=== PATIENT | female | born 1955 | race Hispanic/Latino ===

== ENCOUNTER 2017-06-06 03:55 | Emergency (ER) | payer MEDICARE ==
[~2017-06-06] VITALS: Ht 160 cm; Wt 83.9 kg
--- OUTSIDE RECORDS SUMMARY | 2017-06-06 03:59 | XMS REPORT | Clinical Summary ---
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 Disp. Refills Start End Date Status Date ofloxacin (FLOXIN) 0.3 % Administer 5 drops into 1.75 mL 0 04/12/19 04/19/19 otic solution the left ear daily for 7 18 18 days. amoxicillin-pot Take 1 tablet by mouth 14 tablet 0 04/12/19 clavulanate (AUGMENTIN) every 12 (twelve) hours 18 18 875-125 mg per tablet for 7 days. acetaminophen-codeine Take 1-2 tablets by mouth 20 tablet 0 05/06/19 05/16/19 (TYLENOL WITH CODEINE #3) every 6 (six) hours as 18 18 300-30 mg per tablet needed for mild pain or moderate pain for up to 10 days. [id number] Administer 3 drops into 1.21 mL 0 05/06/1909/26 (CORTISPORIN) the left ear 4 (four) 18 18 3.5-10,000-1 times a day for 10 days. mg/mL-unit/mL-% otic solution Active Problems Not on file Encounters Date Type Specialty Care Team Description 05/05/2017 Emergency Emergency Medicine Aaron Stokes MD Chronic otitis externa of left ear, unspecified type (Primary Dx) 04/11/2017 Emergency Emergency Medicine Dayron Guan, Acute otitis externa of DO left ear, unspecified type (Primary Dx) after 06/05/2016 Social History Tobacco Use Types Packs/Day Years Used Date Never Smoker Smokeless Tobacco: Never Used Alcohol Use Drinks/Week oz/Week Comments No Sex Assigned at Date Recorded Not on file Last Filed Vital Signs Vital Sign Reading Time Taken Blood Pressure 130/60 05/05/2017 3:05 PM CDT Pulse 58 05/05/2017 3:05 PM CDT Temperature 36.7 C (98 F) 05/05/2017 3:05 PM CDT Respiratory Rate 18 05/05/2017 3:05 PM CDT Oxygen Saturation 100% 05/05/2017 3:05 PM CDT Inhaled Oxygen - - Concentration Weight 83.9 kg (185 lb) 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 Height 160 cm (5' 3") 05/05/2017 10:22 AM CDT Body Mass Index 31.76 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 Up to date CT equipment and radiation dose reduction techniques were utilized. FINDINGS: There is fluid in the left middle ear cleft and mastoid air cells. There is no associated mass in the nasopharynx. There are no erosions to suggest underlying cholesteatoma. There is also mucosal thickening in the left external auditory canal. The adjacent sigmoid sinus is unremarkable. The ossicles demonstrate a normal relationship to each other and the oval windows. The inner ear structures are normal. There is no dehiscence of the superior semicircular canals. IMPRESSION: Nonspecific fluid in the left middle ear cleft and mastoid air cells with associated mucosal thickening in the left external auditory canal. [id number] Procedure Note Interface, Radiology Results Incoming - 05/05/2017 2:04 PM CDT EXAMINATION: CT INTERNAL AUDITORY CANALS POSTERIOR FOSSA WO CONTRAST COMPARISON: None CLINICAL HISTORY: left ear infection r o mastoiditis TECHNIQUE: Coronal, sagittal and oblique reformations were accomplished. Up to date CT equipment and radiation dose reduction techniques were utilized. FINDINGS: There is fluid in the left middle ear cleft and mastoid air cells. There is no associated mass in the nasopharynx. There are no erosions to suggest underlying cholesteatoma. There is also mucosal thickening in the left external auditory canal. The adjacent sigmoid sinus is unremarkable. The ossicles demonstrate a normal relationship to each other and the oval windows. The inner ear structures are normal. There is no dehiscence of the superior semicircular canals. IMPRESSION: Nonspecific fluid in the left middle ear cleft and mastoid air cells with associated mucosal thickening in the left external auditory canal. [id number] after 06/05/2016 Insurance Payer Benefit Subscriber ID Type Phone Address Plan / Group MEDICARE MEDICARE xxxxxxxxxx Medicare [place], [place] PART A AND B [id number] [place] [address]
== END 2017-06-06 04:04 | disposition home or self-care (01) ==
LOC: ER 03:55
DX: H60.502 Unspecified acute noninfective otitis externa, left ear (principal); Z83.3 Family history of diabetes mellitus; Z82.49 Family history of ischemic heart disease and other diseases of the circulatory system
CPT/HCPCS: 99282

== ENCOUNTER 2017-07-06 10:52 | Emergency (ER) | payer MEDICARE ==
[~2017-07-06] VITALS: Ht 160 cm; Wt 80.3 kg
--- OUTSIDE RECORDS SUMMARY | 2017-07-06 10:54 | XMS REPORT | Clinical Summary ---
Author Author [facility] Address Unknown Phone Unavailable Care Team Providers Care Telephone Advice Nurse Name Role Phone Asked, Pcp PCP Unavailable [...] moderate pain for up to 10 days. 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 [id number] Procedure Note Interface, Radiology Results Incoming - [...] thickening in the left external auditory canal. [id number] after 07/05/2016 Insurance Payer Benefit Subscriber ID Type Phone Address Plan / Group MEDICARE MEDICARE xxxxxxxxxx Medicare [place] [address]
--- OUTSIDE RECORDS SUMMARY | 2017-07-06 10:54 | XMS REPORT | Continuity of Care Document ---
Author Author [facility] Organization 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 No 06/06/17 3:54am If yes, is advance directive on file with [facility]? No 06/06/17 3:54am If not on file with [facility] will patient provide a copy? No 06/06/17 3:54am Do you have a Directive to Physician? No 06/06/17 3:54am Do you have a Medical Power of Automatic Operator? No 06/06/17 3:54am Do you have an out of hospital Do Not Resuscitate Order? No 06/06/17 3:54am Do you have any special needs we should be aware of? No 06/06/17 3:54am Do you have a support person here with you today? No 06/06/17 3:54am Did patient receive Notice of Privacy Practices? Yes 06/06/17 3:54am Did patient receive patient rights and responsibilities? Yes 06/06/17 3:54am Problems No problem information available. Medications No medication information available. Social History Smoking Status Start Date Stop Date Never Smoker Hospital Discharge Instructions No hospital discharge instruction information available. Plan of Care Discharge Date 06/06/17 4:04am Disposition HOME, SELF-CARE Condition at Discharge Stable Instructions/Education Provided Otitis Externa - Adult Ear Pain - Adult Forms Provided Work/School Excuse Prescriptions See Medication Section Additional Instructions/Education REST; TAKE MEDICATION PRESCRIBED; FOLLOW UP WITH AN ENT; Functional Status No functional status information available. Allergies, Adverse Reactions, Alerts No allergy information available. Immunizations No immunization information available. Vital Signs Acute Vital Signs Vital Response Date/Time Height 5 ft 3 in 06/06/2017 3:57am Weight 185 lb 06/06/2017 3:57am Body Mass Index 32.8 kg/m^2 06/06/2017 3:57am Results No relevant diagnostic test, laboratory data and/or discharge summary information available. Procedures No procedure information available. Encounters Encounter Location Arrival/Admit Date Discharge/Depart Date Attending Provider Departed Emergency Room [facility] 06/06/17 3:55am 4:04am SHANIKA DE MD
[2017-07-06] MEDS ORDERED: METOCLOPRAMIDE HCL 10 MG/2ML VIAL IV ONE (11:15)
[2017-07-06] MEDS ORDERED: DIPHENHYDRAMINE HCL INJ 50 MG/ML VIAL IV ONE (11:15)
[2017-07-06 11:50] LABS: BILIRUBIN,URINE NEGATIVE (NEGATIVE); CLARITY,URINE CLEAR (CLEAR); COLOR,URINE YELLOW (YELLOW); KETONES,URINE NEGATIVE (NEGATIVE); LEUKOCYTE ESTERASE ,URINE NEGATIVE (NEGATIVE); NITRITE,URINE NEGATIVE (NEGATIVE); PROTEIN,URINE DIPSTICK NEGATIVE (NEGATIVE); URINE UROBILINOGEN 0.2 mg/dL (0.2 - 1)
[2017-07-06 12:00] LABS: BASOPHILS % 0.5 % (0.0-1.0); HEMATOCRIT 37.2 % (34.2-44.1); HEMOGLOBIN 12.1 g/dL (12.0-16.0); LYMPHOCYTES # (AUTO) 1.5 (1.0-3.2); LYMPHOCYTES % 39.4 % (18.0-39.1); MEAN CORPUSCULAR HEMOGLOBIN 28.9 pg (28-32); MEAN CORPUSCULAR HGB CONC 32.5 g/dL (31-35); MONOCYTES # (AUTO) 0.3 (0.2-0.8); MONOCYTES % 8.4 % (4.4-11.3); NEUTROPHILS % 51.2 % (38.7-80.0); PLATELET COUNT 92 x10e3/uL (140-360); RED BLOOD COUNT 4.18 x10e6/uL (3.6-5.1); RED CELL DISTRIBUTION WIDTH 14.3 % (11.7-14.4)
[2017-07-06 12:04] LABS: INR 1.14; PROTHROMBIN TIME 13.7 seconds (11.9-14.5)
[2017-07-06 12:05] LABS: PARTIAL THROMBOPLASTIN TIME 33.3 seconds (23.8-35.5)
[2017-07-06 12:12] LABS: ALANINE AMINOTRANSFERASE 18 IU/L (0-55); ALBUMIN 3.7 g/dL (3.5-5.0); ALBUMIN/GLOBULIN RATIO 1.2 (0.8-2.0); ALKALINE PHOSPHATASE 68 IU/L (40-150); ANION GAP 10.3 mmol/L (8-16); BLOOD UREA NITROGEN 14 mg/dL (7-26); BUN/CREATININE RATIO 18 (6-25); CALCIUM 9.5 mg/dL (8.4-10.2); CARBON DIOXIDE 30 mmol/L (22-29); CHLORIDE 101 mmol/L (98-107); CREATINE KINASE 54 IU/L (29-168); CREATININE, SERUM 0.77 mg/dL (0.57-1.11); EST GLOMERULAR FILTRATION RATE > 60 ML/MIN (60-); GLUCOSE 105 mg/dL (74-118); MAGNESIUM 1.9 MG/DL (1.3-2.1); POTASSIUM 3.3 mmol/L (3.5-5.1); SODIUM 138 mmol/L (136-145)
[2017-07-06] MEDS ORDERED: SODIUM CHLORIDE 0.9% 50ML 50 ML ONE (12:14)
--- NOTE | 2017-07-06 12:15 | Diagnostic Imaging Report ---
PROCEDURE: CHEST SINGLE (PORTABLE) COMPARISON: None. INDICATIONS: HEADACHE FINDINGS: Lungs are well-inflated. No focal consolidation, pleural effusion, or pneumothorax. Cardiomediastinal contour and pulmonary vasculature are within normal limits for portable, AP technique. No overt pulmonary edema. No acute osseous abnormality. CONCLUSION: No acute cardiopulmonary abnormality. Dictated by: Colton Mims M.D. on 07/06/2017 at 12:17 Electronically approved by: Colton Mims M.D. on 07/06/2017 at 12:17
[2017-07-06 12:27] LABS: EPITHELIAL CELLS,URINE FEW /LPF
--- NOTE | 2017-07-06 15:25 | Diagnostic Imaging Report ---
Exam: Head CT without contrast History: Headache Comparison studies: None Technique: Axial images were obtained from the skull base to the vertex. Coronal and sagittal images reconstructed from the axial data. Intravenous contrast: None Findings: Scalp: No abnormalities. Bones: No fractures, blastic or lytic lesions. Brain sulci: Mild prominent. Ventricles: Mild compensatory dilatation along the frontal horns of the lateral ventricles. No hydrocephalus. Extra-axial spaces: No masses, no fluid collection. Parenchyma: No mass, acute hemorrhage or acute cortical vascular insults. There are chronic bilateral striatocapsular lacunar infarcts. Sellar/suprasellar region: No abnormalities. Craniocervical junction: Patent foramen magnum. No Chiari one malformation. Incidental findings: Atherosclerotic calcifications in the carotid siphons. Opacified right anterior ethmoid air cell. IMPRESSION: No acute intracranial abnormalities. Chronic findings: 1. Mild generalized cerebral volume loss. 2. Bilateral striatocapsular lacunar infarcts. Signed by: Dr. Colton Jennings M.D. on 07/06/2017 3:22 PM
[2017-07-06 16:14] VITALS: BP 120/67
== END 2017-07-06 16:05 | disposition home or self-care (01) ==
LOC: ER 10:52
DX: G44.209 Tension-type headache, unspecified, not intractable (principal)
CPT/HCPCS: 36415; 70450; 71045; 80053; 81001; 82550; 82553; 83735; 84484; 85025; 85610; 85730; 93005; 99284; J1200; J2765